=== PATIENT | female | born 1965 | race Caucasian/White ===

== ENCOUNTER 2017-11-11 19:54 | Outpatient (CLI) | payer MEDICAID | END 2017-11-11 19:55 | disposition home or self-care (01) | LOC: D.MAMMO 19:54 | DX: Z12.31 Encounter for screening mammogram for malignant neoplasm of breast (principal) ==

== ENCOUNTER 2020-02-10 08:00 | Outpatient (CLI) | payer MEDICAID | END 2020-02-10 15:32 | disposition home or self-care (01) | LOC: D.MAMMO 08:00 | PROVIDERS: ATTEND General Practice | DX: Z12.31 Encounter for screening mammogram for malignant neoplasm of breast (principal) ==